=== PATIENT | female | born 1970 | race Caucasian/White ===

== ENCOUNTER 2016-08-28 09:36 | Emergency (ER) | payer BC ==
[~2016-08-28] VITALS: Ht 162.6 cm; Wt 69.0 kg
[2016-08-28] MEDS ORDERED: LEXAPRO 10 MG T10 M1 PO (10:09)
[2016-08-28 10:10] LABS: HEMATOCRIT 41.4 % (37.0-47.0); MCH 31.2 pg (26.0-34.0); MCHC 33.8 g/dL (28.0-37.0); MCV 92.3 fL (80.0-100.0); PLATELET COUNT 210 thou/uL (150-400); RBC 4.49 mil/uL (4.20-5.00); RDW 13.4 % (10.5-14.5); WBC 12.5 thou/uL (4.0-11.0)
[2016-08-28] MEDS ORDERED: MELATONIN5 M1 PO (10:10)
[2016-08-28] MEDS ORDERED: VYVANSE60 MG PO (10:10)
[2016-08-28 10:16] LABS: CALCIUM 8.2 mg/dL (8.5-10.1); CREATININE 0.7 mg/dL (0.6-1.0); MANUAL DIFF YES; POTASSIUM 4.1 mmol/L (3.5-5.1)
[2016-08-28 10:22] LABS: ALBUMIN 3.9 g/dL (3.4-5.0); DIRECT BILIRUBIN 0.1 mg/dL (<0.1-0.3); TOTAL BILIRUBIN 0.6 mg/dL (<0.1-1.0); TOTAL PROTEIN 7.3 g/dL (6.4-8.2)
[2016-08-28 10:59] LABS: ABSOLUTE NEUTROPHILS 11.9 thou/uL (1.4-8.2); PLATELET ESTIMATE NORMAL; TOTAL CELL COUNT 100
[2016-08-28] MEDS ORDERED: ZOFRAN ODT4 MG PO (11:42)
[2016-08-28] MEDS ORDERED: BENTYL 20 MG TA20 M1 PO (11:45)
[2016-08-28 12:04] VITALS: BP 93/59
== END 2016-08-28 12:04 | disposition home or self-care (01) ==
LOC: ER 09:36
PROVIDERS: Emergency Medicine
DX: R11.2 Nausea with vomiting, unspecified (principal); R19.7 Diarrhea, unspecified; F10.99 Alcohol use, unspecified with unspecified alcohol-induced disorder; Z88.8 Allergy status to other drugs, medicaments and biological substances